=== PATIENT | female | born 1990 | race Hispanic/Latino ===

== ENCOUNTER 2017-05-04 18:00 | Emergency (ER) | payer BC ==
[2017-05-04 18:00] VITALS: BMI 21.5
[2017-05-04 18:10] VITALS: BP 127/86; PULSE 110; RESP 22; TEMP 97.6; O2SAT 99
[2017-05-04] MEDS ORDERED: DiphenhydrAMINE 50 mg/ml Inj ONE (18:12)
[2017-05-04] MEDS ORDERED: DiphenhydrAMINE 50 mg/ml Inj IVP STA (18:17)
--- NOTE | 2017-05-04 18:46 | ED PDOC ---
HPI: Allergic Reaction Time Seen by Provider: 05/04/17 18:17 Chief Complaint (Nursing): ENT Problem Chief Complaint (Provider): Allergic Reaction History Per: Patient History/Exam Limitations: no limitations Onset/Duration Of Symptoms: Mins (x20) Additional Complaint(s): Margy Santos is a 26 year old female that presents to the ED with a chief complaint of sudden onset tongue swelling that began about 20 minutes prior to arrival as a result of eating tomato soup. Patient states that the swelling is constant and worsening since onset, and that she has had difficulty speaking. She denies any throat swelling, throat pain, chest tightness, cough, or vomiting. Of Note: Patient underwent tooth extraction last night and is currently taking Prednisone, Amoxicillin, Ibuprofen, and Percocet. She already has swollen cheeks because of the extraction. Patient has known history of bee sting allergy , but reports that she only gets swollen, and has never experienced tongue swelling. Past Medical History Reviewed: Historical Data, Nursing Documentation, Vital Signs Vital Signs: Last Vital Signs Temp 97.6 F 05/04/17 18:06 Pulse 110 H 05/04/17 18:06 Resp 22 05/04/17 18:06 BP 127/86 05/04/17 18:06 Pulse Ox 99 05/04/17 18:06 - Medical History PMH: Anxiety, Depression Denies: Diabetes, Hepatitis, HIV, HTN, Seizures, Sexually Transmitted Disease Other PMH: Known allergy to bee stings - Family History Family History: States: Unknown Family Hx - Home Medications Home Medications: Ambulatory Orders Medication Instructions Recorded Dolutegravir Sodium [Tivicay] 50 mg PO DAILY #28 tablet 11/13/15 Emtricitabine/Tenofovir Diso 1 tab PO DAILY #28 tab 11/13/15 [Truvada 200 MG-300 MG] Alprazolam [Xanax] 0.5 mg PO TID PRN 09/04/16 DiphenhydrAMINE [Diphenhydramine 10 ml PO Q6 #240 ml 05/04/17 HCl] Epinephrine HCl [Epipen 0.3 mg IM ONCE PRN #0.3 ml 05/04/17 Auto-Injector] - Allergies Allergies/Adverse Reactions: Allergies Allergy/AdvReac Type Severity Reaction Status Date / Time No Known Allergies Allergy Verified 11/13/15 03:32 Review of Systems ENT: Positive for: Other (Tongue swelling). Negative for: Throat Pain, Throat Swelling Cardiovascular: Negative for: Chest Pain, Other (denies chest tightness) Respiratory: Negative for: Cough Gastrointestinal: Negative for: Vomiting Physical Exam - Reviewed Nursing Documentation Reviewed: Yes Vital Signs Reviewed: Yes - Physical Exam Appears: Positive for: Uncomfortable, In Acute Distress Head Exam: Positive for: ATRAUMATIC, NORMOCEPHALIC Skin: Positive for: Warm, Dry. Negative for: Rash Eye Exam: Positive for: EOMI, PERRL ENT: Positive for: Other (hyperglossia, bilateral mandibular edema (reported as secondary to wisdom teeth extraction)) Neck: Positive for: Painless ROM, Supple Cardiovascular/Chest: Positive for: Tachycardia (regular rhythm). Negative for : Murmur Respiratory: Positive for: Normal Breath Sounds. Negative for: Wheezing, Respiratory Distress Gastrointestinal/Abdominal: Positive for: Soft. Negative for: Tenderness Back: Positive for: Normal Inspection. Negative for: Muscle Spasm Extremity: Positive for: Normal ROM. Negative for: Deformity - ECG O2 Sat by Pulse Oximetry: 99 (RA) Pulse Ox Interpretation: Normal Disposition - Clinical Impression Clinical Impression: Allergic reaction Counseled Patient/Family Regarding: Diagnosis, Need For Followup, Rx Given - Disposition Referrals: Ray Mendiola MD [Medical Doctor] - (CALL TOMORROW TO SETUP FOLLOW UP APPOINTMENT ) Disposition: Routine/Home Disposition Time: 19:00 Condition: IMPROVED Prescriptions: DiphenhydrAMINE [Diphenhydramine HCl] 10 ml PO Q6 #240 ml Epinephrine HCl [Epipen Auto-Injector] 0.3 mg IM ONCE PRN #0.3 ml PRN Reason: Anaphylaxis Instructions: Angioedema (ED), General Allergic Reaction (ED) Forms: [facility] ED School/Work Excuse Medical Decision Making Medical Decision Making: Impression: Allergic Reaction Plan: * Patient immediately given IV Benadryl, IV Pepcid, and IV Solumedrol. Symptoms resolved within five minutes. Patient will be observed in ER due to severity of swelling. * 1900 On reeval pt continues to be symptom free and eager to go home. MENDEL pt plan of care. Scribe Attestation: Documented by Suyapa Fernandez, acting as a scribe for Elsy Hoffman MD. Provider Scribe Attestation: All medical record entries made by the Scribe were at my direction and personally dictated by me. I have reviewed the chart and agree that the record accurately reflects my personal performance of the history, physical exam, medical decision making, and the department course for this patient. I have also personally directed, reviewed, and agree with the discharge instructions and disposition.
== END 2017-05-04 19:29 | disposition home or self-care (01) ==
LOC: H.ER 18:00
DX: T78.40XA Allergy, unspecified, initial encounter (principal)
CPT/HCPCS: 96374; 96375; 99282; J1200; J2930

== ENCOUNTER 2017-08-25 23:53 | Emergency (ER) | payer BC ==
[2017-08-25 23:53] VITALS: BMI 21.5
[2017-08-26 01:38] LABS: BASO % 0.9 % (0.0-2.0); EOS # 0.1 K/uL (0.0-0.7); EOS % 1.2 % (0.0-4.0); HEMOGLOBIN 12.6 g/dL (12.0-16.0); LYMPH # 2.3 K/uL (1.0-4.3); LYMPH % 48.9 % (20.0-40.0); MEAN CELL VOLUME 101.2 fl (81.0-99.0); MEAN CORPUSCULAR HEMOGLOBIN 34.7 pg (27.0-31.0); MEAN CORPUSCULAR HGB CONC 34.3 g/dL (33.0-37.0); MEAN PLATELET VOLUME 7.8 fl (7.2-11.7); MONO # 0.3 K/uL (0.0-0.8); MONO % 7.1 % (0.0-10.0); NEUT % 41.9 % (50.0-75.0); NRBC % 0.1 % (0.0-0.0); RBC 3.62 Mil/uL (3.80-5.20); RED CELL DISTRIBUTION WIDTH 12.2 % (11.5-14.5); WHITE BLOOD COUNT 4.7 K/uL (4.8-10.8)
--- NOTE | 2017-08-26 01:39 | ED PDOC ---
HPI: Psych/Substance Abuse Time Seen by Provider: 08/26/17 00:08 Chief Complaint (Nursing): Alcohol Ingestion Chief Complaint (Provider): Alcohol Ingestion ED Caveat: Intoxicated Modifying Factor(s): Alcohol Additional Complaint(s): 26 y/o female is brought to the ED by EMS for suicidal ideations and alcohol intoxication. According to EMS, patient fell down and stated that she wanted to kill herself. In ED denies patient denies suicidal ideation and is agitated, uncooperative, screaming and yelling. Past Medical History Reviewed: Historical Data, Nursing Documentation, Vital Signs Vital Signs: Last Vital Signs Temp 98.2 F 08/26/17 00:07 Pulse 120 H 08/26/17 00:07 Resp 19 08/26/17 00:07 BP 112/76 08/26/17 00:07 Pulse Ox 99 08/26/17 00:07 - Medical History PMH: Anxiety, Depression Denies: Diabetes, Hepatitis, HIV, HTN, Seizures, Sexually Transmitted Disease - Family History Family History: States: Unknown Family Hx - Home Medications Home Medications: Ambulatory Orders Medication Instructions Recorded Dolutegravir Sodium [Tivicay] 50 mg PO DAILY #28 tablet 11/13/15 Emtricitabine/Tenofovir Diso 1 tab PO DAILY #28 tab 11/13/15 [Truvada 200 MG-300 MG] Alprazolam [Xanax] 0.5 mg PO TID PRN 09/04/16 DiphenhydrAMINE [Diphenhydramine 10 ml PO Q6 #240 ml 05/04/17 HCl] Epinephrine HCl [Epipen 0.3 mg IM ONCE PRN #0.3 ml 05/04/17 Auto-Injector] - Allergies Allergies/Adverse Reactions: Allergies Allergy/AdvReac Type Severity Reaction Status Date / Time No Known Allergies Allergy Verified 11/13/15 03:32 Review of Systems Review Of Systems: ROS cannot be obtained secondary to pt's inabilty to answer questions. (Cannot be obtained due to intoxication) Physical Exam - Reviewed Nursing Documentation Reviewed: Yes Vital Signs Reviewed: Yes - Physical Exam Appears: Positive for: No Acute Distress Head Exam: Positive for: ATRAUMATIC, NORMAL INSPECTION, NORMOCEPHALIC Skin: Positive for: Normal Color, Warm, Dry Eye Exam: Positive for: EOMI, Normal appearance, PERRL ENT: Positive for: Normal ENT Inspection Neck: Positive for: Normal, Painless ROM, Supple Cardiovascular/Chest: Positive for: Regular Rate, Rhythm. Negative for: Murmur Respiratory: Positive for: Normal Breath Sounds. Negative for: Accessory Muscle Use, Respiratory Distress Gastrointestinal/Abdominal: Positive for: Normal Exam, Bowel Sounds, Soft. Negative for: Tenderness Back: Positive for: Normal Inspection Extremity: Positive for: Normal ROM. Negative for: Deformity Neurologic/Psych: Positive for: Mood/Affect (Affect- agitated), Other (Slurred speech) - Laboratory Results Result Diagrams: 08/26/17 01:30 08/26/17 01:30 - ECG O2 Sat by Pulse Oximetry: 99 (RA) Pulse Ox Interpretation: Normal Medical Decision Making Medical Decision Making: Time: 00:35 Initial Impression: 26 y/o female with alcohol intoxication and possible suicidal ideation Plan: Alcohol serum CMP Drug screen Crisis evaluation Urine Urine dipstick CBC w/ differential Lorazepam 2mg IM Haldol 5mh IM 1:1 Observation Accucheck Restraint: violent or harm to self/others Urinalysis Reevaluation Time: Patient is signed out to Dr. Tran pending sobriety and crisis. Scribe Attestation: Documented by Carlos Oconnor acting as a scribe for Luis E Snowden MD. Scribe Attestation: All medical record entries made by the Scribe were at my direction and personally dictated by me. I have reviewed the chart and agree that the record accurately reflects my personal performance of the history, physical exam, medical decision making, and the department course for this patient. I have also personally directed, reviewed, and agree with the discharge instructions and disposition. Disposition - Clinical Impression Clinical Impression: Alcohol use, Depression - Disposition [place] [facility] Disposition: Transfer of Care Disposition Time: 07:00 Condition: STABLE Instructions: Depression, Alcohol Use - When Is Drinking a Problem? Forms: [facility] (Romanian)
[2017-08-26 01:49] LABS: ALB/GLOB RATIO 1.5 (1.0-2.1); ALBUMIN 3.9 g/dL (3.5-5.0); ALT/SGPT 35 U/L (9-52); AST/SGOT 38 U/L (14-36); BLOOD UREA NITROGEN 11 mg/dl (7-17); CALCIUM 8.4 mg/dL (8.4-10.2); GFR AFRICAN-AMERICAN > 60; GFR NON-AFRICAN AMERICAN > 60
[2017-08-26 07:00] LABS: SQUAMOUS EPITHIAL 8 /hpf (0-5); URINE BACTERIA RARE (<OCC); URINE BILIRUBIN NEGATIVE (NEGATIVE); URINE BLOOD NEGATIVE (NEGATIVE); URINE CLARITY CLOUDY (Clear); URINE COLOR YELLOW (YELLOW); URINE GLUCOSE (UA) NEG (Normal); URINE LEUKOCYTE ESTERASE TRACE Leu/uL (Negative); URINE NITRATE NEGATIVE (NEGATIVE); URINE PROTEIN NEGATIVE (NEGATIVE); URINE UROBILINOGEN 0.2-1.0 mg/dL (0.2-1.0)
--- NOTE | 2017-08-26 07:04 | ED PDOC ---
- Laboratory Results Result Diagrams: 08/26/17 01:30 08/26/17 01:30 - ECG O2 Sat by Pulse Oximetry: 98 - Progress Re-evaluation Time: 09:36 Condition: Improved (Awake alert oriented x 3 no focal neuro deficits. Demies SI /HI) Medical Decision Making Medical Decision Making: Time: 0700 --Patient was endorsed to provider by Dr. Luis E Snowden. Pending clinical sobriety and crisis evaluation. Scribe Attestation: Documented by Vanessa Olivia, acting as a scribe for Scooter Tran MD. Provider Scribe Attestation: All medical record entries made by the Scribe were at my direction and personally dictated by me. I have reviewed the chart and agree that the record accurately reflects my personal performance of the history, physical exam, medical decision making, and the department course for this patient. I have also personally directed, reviewed, and agree with the discharge instructions and disposition. Disposition - Clinical Impression Clinical Impression: Alcohol use, Depression - POA Present On Arrival: None - Disposition Referrals: [facility] [Outside] Disposition: Routine/Home Disposition Time: 09:37 Condition: FAIR Instructions: Depression, Alcohol Use - When Is Drinking a Problem? Forms: [employer] (Nigerian)
[2017-08-26 07:20] LABS: BARBITURATES, UR NEGATIVE (NEGATIVE); BENZODIAZEPINES, UR POSITIVE (NEGATIVE); OPIATES, UR NEGATIVE (NEGATIVE); PHENCYCLIDINE, UR NEGATIVE (NEGATIVE)
[2017-08-26 11:11] VITALS: PULSE 107; RESP 16; TEMP 98.6
[2017-08-26 11:15] VITALS: BP 110/66
[2017-08-27 02:21] VITALS: O2SAT 99
== END 2017-08-26 11:17 | disposition home or self-care (01) ==
LOC: H.ER 23:53
DX: F32.9 Major depressive disorder, single episode, unspecified (principal); F10.129 Alcohol abuse with intoxication, unspecified
CPT/HCPCS: 80053; 81003; 81025; 82948; 85025; 96372; 99283; G0480; J1630; J2060